=== PATIENT | female | born 1965 | race Caucasian/White ===

== ENCOUNTER 2018-08-06 10:50 | Emergency (ER) | payer OTHER ==
[2018-08-06 11:18] VITALS: BP 153/89; PULSE 90; RESP 18; TEMP 97.6; O2SAT 98; BMI 27.1
--- NOTE | 2018-08-06 11:59 | C.PDOC ---
History Of Present Illness 53 year old female presents to the ED for evaluation of intermittent headaches which have been ongoing for the past 15 months. Patient also complains of joint pain to her hands and feet with occasional swelling. especially when it is cold. Patient arrived from [facility] three months ago, and does not regularly follow up with a PMD. She has not taken any medicine for her symptoms. Patient denies fever, chills, cough, chest pain, or shortness of breath. pt has no headache or hand vu at this time Time Seen by Provider: 08/06/18 11:15 Chief Complaint (Nursing): Headache History Per: Patient History/Exam Limitations: no limitations Onset/Duration Of Symptoms: Intermittent Episodes (15 months ) Current Symptoms Are (Timing): Still Present Quality: Aching Additional History Per: Patient Past Medical History Reviewed: Historical Data, Nursing Documentation, Vital Signs Vital Signs: Last Vital Signs Temp 97.6 F 08/06/18 11:06 Pulse 90 08/06/18 11:06 Resp 18 08/06/18 11:06 BP 153/89 H 08/06/18 11:06 Pulse Ox 98 08/06/18 11:06 - Medical History PMH: No Chronic Diseases Surgical History: No Surg Hx Family History: States: Unknown Family Hx - Social History Hx Alcohol Use: No Hx Substance Use: No Review Of Systems Constitutional: Negative for: Fever, Chills Cardiovascular: Negative for: Chest Pain Respiratory: Negative for: Cough, Shortness of Breath Musculoskeletal: Positive for: Other (joint pains to hands and feet) Neurological: Positive for: Headache Physical Exam - Physical Exam Appears: Non-toxic, No Acute Distress Skin: Normal Color, Warm, Dry Head: Atraumatic, Normacephalic Eye(s): bilateral: Normal Inspection Oral Mucosa: Moist Neck: Supple Chest: Symmetrical, No Deformity, No Tenderness Cardiovascular: Rhythm Regular Respiratory: Normal Breath Sounds, No Rales, No Rhonchi, No Wheezing Extremity: Normal ROM (bilateral upper and lower extremities ), No Tenderness, Capillary Refill (less than 2 seconds ), No Swelling Pulses: Left Radial: Normal, Right Radial: Normal Neurological/Psych: Oriented x3, Normal Speech, Normal Cognition, Normal Motor, Normal Sensation Gait: Steady ED Course And Treatment O2 Sat by Pulse Oximetry: 98 (on RA) Pulse Ox Interpretation: Normal Disposition - Disposition Referrals: [facility] at [facility] [Outside] Disposition: HOME/ ROUTINE Disposition Time: 11:59 Condition: GOOD Additional Instructions: Please follow up in medical clinic as soon as possible for further evaluation of headache and joint pain. Take acetaminophen as prescribed for pain if needed. It sounds like you have arthritis in your hands- unclear if osteoarthritis or rheumatoid arthritis- need further outpatient evaluation. Prescriptions: Acetaminophen [Tylenol 325mg tab] 650 mg PO Q4 #50 tab Instructions: Osteoarthritis (DC), Headache, Adult (DC) Forms: General Discharge Instructions, [facility] ([place]) - Clinical Impression Clinical Impression: Headache, Hand joint pain - PA / [employer] / Resident Statement MD/DO has reviewed & agrees with the documentation as recorded. - Scribe Statement The provider has reviewed the documentation as recorded by the Scribe (Priscilla Shelton) All medical record entries made by the Scribe were at my direction and personally dictated by me. I have reviewed the chart and agree that the record accurately reflects my personal performance of the history, physical exam, medical decision making, and the department course for this patient. I have also personally directed, reviewed, and agree with the discharge instructions and disposition.
--- NOTE | 2018-08-06 12:04 | C.PDOC ---
Time Seen by Provider: 08/06/18 11:15 Chief Complaint (Nursing): Headache Past Medical History Vital Signs: Last Vital Signs Temp 97.6 F 08/06/18 11:06 Pulse 90 08/06/18 11:06 Resp 18 08/06/18 11:06 BP 153/89 H 08/06/18 11:06 Pulse Ox 98 08/06/18 11:06 - Social History Hx Alcohol Use: No Hx Substance Use: No ED Course And Treatment O2 Sat by Pulse Oximetry: 98 Disposition Counseled Patient/Family Regarding: Diagnosis, Need For Followup - Disposition Referrals: [facility] [Outside] Disposition: HOME/ ROUTINE Disposition Time: 11:59 Condition: GOOD Additional Instructions: Please follow up in medical clinic as soon as possible for further evaluation of headache and joint pain. Take acetaminophen as prescribed for pain if needed. It sounds like you have arthritis in your hands- unclear if osteoarthritis or rheumatoid arthritis- need further outpatient evaluation. Prescriptions: Acetaminophen [Tylenol 325mg tab] 650 mg PO Q4 #50 tab Instructions: Headache, Adult (DC), Osteoarthritis (DC) Forms: [facility] (Korean), General Discharge Instructions - Clinical Impression Clinical Impression: Headache, Hand joint pain
== END 2018-08-06 12:26 | disposition home or self-care (01) ==
LOC: C.ER 10:50
DX: R51 Headache (principal); M25.542 Pain in joints of left hand; M25.541 Pain in joints of right hand